=== PATIENT | male | born 1995 | race Caucasian/White ===

== ENCOUNTER → 2017-08-24 | Outpatient (CLI) | payer OTHER | END | disposition home or self-care (01) | LOC: US 15:00 | DX: I86.1 Scrotal varices (principal); N50.3 Cyst of epididymis ==

== ENCOUNTER 2017-08-27 17:05 | Emergency (ER) | payer OTHER ==
[~2017-08-27] VITALS: Ht 177.8 cm; Wt 72.6 kg
== END 2017-08-27 18:58 | disposition home or self-care (01) ==
LOC: ED 17:05
DX: S51.811A Laceration without foreign body of right forearm, initial encounter (principal); S61.214A Laceration without foreign body of right ring finger without damage to nail, initial encounter; Z88.1 Allergy status to other antibiotic agents; W22.03XA Walked into furniture, initial encounter; Y93.89 Activity, other specified; Y92.89 Other specified places as the place of occurrence of the external cause; Y99.8 Other external cause status

== ENCOUNTER 2020-04-14 19:44 | Emergency (ER) | payer OTHER ==
[~2020-04-14] VITALS: Ht 182.8 cm; Wt 77.1 kg
== END 2020-04-14 23:33 | disposition home or self-care (01) ==
LOC: ED 19:44
DX: S90.31XA Contusion of right foot, initial encounter (principal); S90.811A Abrasion, right foot, initial encounter; Z88.8 Allergy status to other drugs, medicaments and biological substances; X58.XXXA Exposure to other specified factors, initial encounter; Y93.89 Activity, other specified; Y92.89 Other specified places as the place of occurrence of the external cause; Y99.8 Other external cause status

== ENCOUNTER 2021-08-28 20:50 | Emergency (ER) | payer SELFPAY ==
[~2021-08-28] VITALS: Ht 182.8 cm; Wt 77.1 kg
[2021-08-28] MEDS ORDERED: PERCOCET 5-3251 EACH PO (22:51)
[2021-09-01] MEDS ORDERED: HYDROCODONE-AC1 EAC1 PO (13:53)
[2021-09-01] MEDS ORDERED: DAILY VALUE1 EACH PO (13:54)
== END 2021-08-28 22:51 | disposition home or self-care (01) ==
LOC: ED 20:50
DX: S52.591A Other fractures of lower end of right radius, initial encounter for closed fracture (principal); Z88.1 Allergy status to other antibiotic agents; W18.30XA Fall on same level, unspecified, initial encounter; Y93.89 Activity, other specified; Y92.89 Other specified places as the place of occurrence of the external cause; Y99.9 Unspecified external cause status

== ENCOUNTER → 2021-09-04 | Day surgery (SDC) | payer OTHER ==
[2021-09-01 13:52] VITALS: BP 129/73
[~2021-09-04] VITALS: Ht 182.8 cm; Wt 77.1 kg
[~2021-09-04] MED LIST: DAILY VALUE1 EACH PO; HYDROCODONE-AC1 EAC1 PO; PERCOCET 5-3251 EACH PO
[2021-09-04 07:23] VITALS: BP 140/80
[2021-09-04 09:00] VITALS: BP 136/99
[2021-09-04 09:15] VITALS: BP 140/88
[2021-09-04 09:30] VITALS: BP 144/85
[2021-09-04 09:45] VITALS: BP 147/88
[2021-09-04 10:00] VITALS: BP 146/90
== END | disposition home or self-care (01) ==
LOC: SDC 09-01 14:00
PROVIDERS: ATTEND Orthopaedic Surgery
DX: S52.551A Other extraarticular fracture of lower end of right radius, initial encounter for closed fracture (principal); W19.XXXA Unspecified fall, initial encounter; Y93.89 Activity, other specified; Y92.89 Other specified places as the place of occurrence of the external cause; Y99.8 Other external cause status; Z20.822 Contact with and (suspected) exposure to COVID-19; Z79.899 Other long term (current) drug therapy

== ENCOUNTER → 2021-09-17 | Outpatient (CLI) | payer OTHER | LOC: ORTHO 00:30 | PROVIDERS: ATTEND Orthopaedic Surgery | DX: S52.531D Colles' fracture of right radius, subsequent encounter for closed fracture with routine healing (principal); S52.611D Displaced fracture of right ulna styloid process, subsequent encounter for closed fracture with routine healing; X58.XXXD Exposure to other specified factors, subsequent encounter ==

== ENCOUNTER → 2021-10-15 | Outpatient (CLI) | payer OTHER | END | disposition home or self-care (01) | LOC: ORTHO 08:24 | PROVIDERS: ATTEND Orthopaedic Surgery | DX: S52.531D Colles' fracture of right radius, subsequent encounter for closed fracture with routine healing (principal); S52.611D Displaced fracture of right ulna styloid process, subsequent encounter for closed fracture with routine healing; X58.XXXD Exposure to other specified factors, subsequent encounter ==

== ENCOUNTER 2021-11-09 15:10 | Emergency (ER) | payer OTHER ==
[2021-11-09] MEDS ORDERED: IBUPROFEN600 MG PO (17:30)
[2021-11-09] MEDS ORDERED: TOBRAMYCIN 5 ML5 M1 OPH (17:30)
== END 2021-11-09 17:36 | disposition home or self-care (01) ==
LOC: ED 15:10
DX: T15.91XA Foreign body on external eye, part unspecified, right eye, initial encounter (principal); Z79.899 Other long term (current) drug therapy; Z88.0 Allergy status to penicillin; Z88.1 Allergy status to other antibiotic agents; X58.XXXA Exposure to other specified factors, initial encounter; Y93.89 Activity, other specified; Y92.89 Other specified places as the place of occurrence of the external cause; Y99.9 Unspecified external cause status